=== PATIENT | male | born 1985 ===

== ENCOUNTER 2020-05-29 05:25 | Day surgery (SDC) | payer OTHER ==
[2020-05-29] MEDS ORDERED: RECTICARE30 GM TOP (08:09)
[2020-05-29] MEDS ORDERED: PERCOCET 5-3251 EACH PO (08:09)
== END 2020-05-29 12:15 | disposition home or self-care (01) ==
LOC: CIR.AMB 05:25 → ADM 11:30 → CIR.AMB 11:30
PROVIDERS: ATTEND Surgery
DX: K60.3 Anal fistula (principal)